=== PATIENT | male | born 1985 | race Caucasian/White ===

== ENCOUNTER 2020-04-23 08:31 | Emergency (ER) | payer OTHER, SELFPAY ==
[2020-04-23 08:51] VITALS: BP 128/90; PULSE 74; RESP 16; TEMP 36.3; O2SAT 100
--- NOTE | 2020-04-23 08:53 | ED.SKABFB ---
HPI - Skin/Abscess/Foreign Bdy General Chief complaint: Extremity Injury, Lower Stated complaint: injury right great toe Time Seen by Provider: 04/23/20 08:53 Source: patient and RN notes reviewed History of Present Illness HPI narrative: Patient is a 35-year-old male that presents the urgent care with complaints of injury to right great toe. Patient states that last night he rolled the trash can over the right great toe and was wondering what to do about the toenail . Patient states that he is cleaned and wrapped it. No other acute complaints. No acute distress noted. Patient read the plan of care. Related Data Home Medications Medication Instructions Recorded Confirmed zonisamide 50 mg PO DAILY 04/23/20 04/23/20 Allergies Allergy/AdvReac Type Severity Reaction Status Date / Time No Known Allergies Allergy Verified 04/23/20 08:58 Review of Systems Review of Systems: Narrative: CONSTITUTIONAL: Denies fever, chills, or sweats. EYES: Denies visual changes, redness, or discharge. ENT: Denies rhinorrhea, congestion, sore throat, or otalgia. CARDIOVASCULAR: Denies chest pain, palpitations, or edema. RESPIRATORY: Denies cough or dyspnea. GASTROINTESTINAL: Denies abdominal pain, nausea, vomiting, or diarrhea. GENITOURINARY: Denies dysuria or hematuria. SKIN: Reports of abrasion and right great toe nail injury MUSCULOSKELETAL: Reports of injury to right great toe NEUROLOGIC: Denies headache, numbness, or weakness. All other systems reviewed are negative, except as documented in HPI. PMFSH Comments At the time of my signature, I reviewed and agree with the nursing past medical, surgical, social, and family history. There is no relevant family history pertinent to the patient complaint. Exam Narrative: Exam Narrative: GENERAL: This is a well-nourished, well-developed patient, in no apparent distress. HEAD: normocephalic, atraumatic. EYES: PERRL. Sclera clear/white. Vision is grossly intact. EARS: External ears normal NOSE: External nose normal with no obvious nasal discharge, nares without redness, no rhinorrhea. THROAT: Mucous membranes moist NECK: Neck supple, non-tender without lymphadenopathy, masses or thyromegaly. SKIN: Flap abrasion noted to the medial aspect of the right great toe with affected intact right great toenail. Warm, intact with no suspicious lesions or rash, good texture and turgor. NEURO: awake, alert, and oriented to person, place and time. There were no obvious focal neurologic abnormalities. EXTREMITIES: No obvious edema, ecchymosis, erythema, deformity to right great toe. Capillary refill less than 2 seconds to right lower extremity with positive strong right pedal pulse. Course Vital Signs Vital signs: Vital Signs Temperature 97.4 F L 04/23/20 08:51 Pulse Rate 74 04/23/20 08:51 Respiratory Rate 16 04/23/20 08:51 Blood Pressure 128/90 04/23/20 08:51 Pulse Oximetry 100 04/23/20 08:51 Temperature 97.4 F L 04/23/20 08:51 Pulse Rate 74 04/23/20 08:51 Respiratory Rate 16 04/23/20 08:51 Blood Pressure 128/90 04/23/20 08:51 Pulse Oximetry 100 04/23/20 08:51 Reviewed MDM - Skin/Abscess/Foreign Bdy MDM Narrative Medical decision making narrative: Advised the patient to keep the toe very clean, soaking it in plain Dial soap and water at least twice a day or as needed. Wear dressing over the toe if wearing a shoe as necessary. Use prescription cream to the abrasions twice a day as directed. If you develop any redness, swelling, increased pain or streaking of redness up the toes/foot?start oral antibiotics as directed. Otherwise oral antibiotics may not be necessary. Make sure if you do take them, eat and drink with the medication. The toenail will likely eventually fall off, however do not attempt to remove it on your own. Follow-up with podiatry within 1 week. Follow-up with your PCP within 2 to 5 days or for worsening symptoms or failure to improve. Differenti
== END 2020-04-23 09:28 | disposition home or self-care (01) ==
PROVIDERS: Emergency Provider Nurse Practitioner Family
DX: S90.411A Abrasion, right great toe, initial encounter (principal); W22.8XXA Striking against or struck by other objects, initial encounter
CPT/HCPCS: 99213; G0463

== ENCOUNTER 2022-09-02 14:23 | Emergency (ER) | payer OTHER, SELFPAY ==
[2022-09-02 14:34] VITALS: BP 154/92; PULSE 119; RESP 16; TEMP 36.7; O2SAT 100
--- NOTE | 2022-09-02 15:29 | ED.URI ---
HPI - URI/Sore Throat General Chief Complaint: Upper Respiratory Infection Stated Complaint: Covid Positive Time Seen by Provider: 09/02/22 15:15 Source: patient, RN notes reviewed and old records reviewed Mode of arrival: ambulatory Limitations: no limitations History of Present Illness HPI Narrative: 37-year-old male who presents to [facility] care with complaints of testing positive on home COVID test but work would not take home test must be verified. Patient reports his and kids are all ill also with COVID symptoms. Patient reports that he has had fatigue, nausea and diarrhea since Thursday and he took 2 home tests which were both positive, he has been COVID vaccinated and had Booster. Patient does have history of seizure takes daily medication to control. MD elicited complaint: other (fatigue, nausea and diarrhea) Onset (ago): day(s) (2) Related Data Home Medications Medication Instructions Recorded Confirmed zonisamide 50 mg capsule 50 mg PO DAILY 04/23/20 09/02/22 Allergies Allergy/AdvReac Type Severity Reaction Status Date / Time No Known Allergies Allergy Verified 09/02/22 15:08 Review of Systems Review of Systems: CONSTITUTIONAL: Reports malaise, no chills, sweats, or fever. EYES: Denies visual changes, redness, or discharge. ENT: Reports rhinorrhea, congestion, sinus pain, otalgia and sore throat. CARDIOVASCULAR: Denies chest pain, palpitations, or edema. RESPIRATORY: No cough reported? Denies dyspnea. GASTROINTESTINAL: Denies abdominal pain,positive for nausea,no vomiting,positive for diarrhea SKIN: Denies rash or itching. MUSCULOSKELETAL: Reports myalgia and fatigue NEUROLOGIC: Denies headache. All systems reviewed & are unremarkable except as noted in HPI and below PMFSH Past Medical History Medical History (Updated 09/04/22 @ 21:55 by Huyen Torres NP) Epilepsy Surgical History Surgical History (Updated 09/04/22 @ 21:56 by Huyen Torres NP) History of surgery on arm orthopedic surgery right arm Social History Social History (Updated 09/04/22 @ 22:01 by Huyen Torres NP) Tobacco type: e-cigarettes/vaping Alcohol intake: unknown Substance use type: does not use Living arrangements: with family Gender identity (if verbalized by the patient): Male Comments At time of signature, agree with nursing past medical, surgical, social and family history. There is no relevant family history pertinent to the presenting complaint Exam Narrative: GENERAL: Well-appearing, well-nourished, and in no acute distress. HEAD: Normocephalic EYES: PERRLA, conjunctivae clear ENT: Nares clear, turbinates edematous and erythematous, clear discharge. Mucous membranes moist. TM pearly bauman with dull light reflex bilaterally; no tragal tenderness. Oropharynx mild erythematous without lesions. Tonsils not enlarged and without exudate, no drooling, no hoarseness, no trismus, uvula midline. NECK: Supple. No lymphadenopathy CHEST: Clear to auscultation, breath sounds equal. No wheezing, rhonchi, rales, or stridor. No respiratory distress, speaks in full sentences. SAO2 100% on room air HEART: Regular rate and rhythm. No murmur heard. ABDOMINAL: no abdominal pain verbalized, nausea with diarrhea, has had no vomiting, no McBurney point tenderness. SKIN: Warm, dry, no rash vomiting,. NEURO: Alert and oriented x3. PSYCH: Normal mood and affect Course Course Emergency Course: Patient is aware of diagnosis, understands and agrees to treatment plan.? Anticipatory guidance given.? Patient agrees to follow-up as directed and is aware of reasons to seek care at the emergency department. Portions of this record may have been created with voice recognition software Level of Care: Express Care Visit Vital Signs Vital signs: Vital Signs Temperature 36.7 C 09/02/22 14:34 Pulse Rate 119 H 09/02/22 14:34 Respiratory Rate 16 09/02/22 14:34 Blood Pressure 154/92
== END 2022-09-02 15:48 | disposition home or self-care (01) ==
PROVIDERS: Emergency Provider Registered Nurse
DX: U07.1 COVID-19 (principal); G40.909 Epilepsy, unspecified, not intractable, without status epilepticus; F17.290 Nicotine dependence, other tobacco product, uncomplicated
CPT/HCPCS: 87426; 99213; C9803; G0463

== ENCOUNTER 2023-01-21 09:57 | Emergency (ER) | payer OTHER, SELFPAY ==
[2023-01-21 10:07] VITALS: BP 135/80; PULSE 102; RESP 18; TEMP 36.3; O2SAT 100
--- NOTE | 2023-01-21 10:10 | ED.NAVMDI ---
HPI - Nausea/Vomiting/Diarrhea General Chief complaint: Nausea/Vomiting/Diarrhea Stated complaint: Abdominal Pain/Nausea/ Vomiting/Diarrhea Time Seen by Provider: 01/21/23 10:01 Source: patient Mode of arrival: ambulatory Limitations: no limitations History of Present Illness HPI Narrative: Yury is a 37-year-old male patient presenting to the clinic today with complaints of abdominal cramping, nausea, vomiting, and diarrhea since 2:00 a.m. this morning. He reports he has vomited approximately 20 times and had 2 episodes of diarrhea. Has a generalized feeling of cramping and a knot in his stomach. No history of constipation. He denies any fever or chills. He is concerned that he may have COVID as he has had recent exposure to someone with COVID. Also reports that his daughters have both had vomiting and diarrhea over the past few days. He denies a sore throat. Related Data Home Medications Medication Instructions Recorded Confirmed zonisamide 50 mg capsule 50 mg PO DAILY 04/23/20 09/02/22 citalopram 10 mg tablet mg 01/21/23 Allergies Allergy/AdvReac Type Severity Reaction Status Date / Time No Known Allergies Allergy Verified 01/21/23 10:00 Review of Systems Review of Systems: Pertinent positives per HPI. Patient denies any fever, chills, rash, headache, visual changes, dizziness, cough, runny nose, sore throat, shortness of breath, chest pain, palpitations, constipation, or any urinary issues. PMFSH Past Medical History Medical History Epilepsy Surgical History Surgical History History of surgery on arm orthopedic surgery right arm Social History Social History Tobacco type: e-cigarettes/vaping Alcohol intake: unknown Substance use type: does not use Living arrangements: with family Gender identity (if verbalized by the patient): Male Comments At the time of my signature, I reviewed and agree with the nursing past medical, surgical, social, and family history. There is no relevant family history pertinent to the patient complaint. Exam Narrative: General: Well-developed, well nourished, in no apparent distress Head: Normocephalic, atraumatic Eyes: Pupils equally round and reactive to light bilaterally, EOM intact, sclera and conjunctive clear, no discharge, lids normal Ears: TMs intact and clear, ear canals clear, no drainage, grossly hearing normal. Nose: Nares patent, no discharge, no inflammation, no sinus tenderness. Mouth: Oropharynx without lesions or masses, good dentition, MMM. Neck: Supple, trachea midline, no enlargement of anterior or posterior cervical nodes, no thyroid masses or goiter palpable. Cardio: Regular rate and rhythm, s1 and s2 normal, no murmur appreciated. Resp: Clear to auscultation bilaterally anteriorly and posteriorly, no rhonchi, rales, wheezing or rubs Abdomen: Soft, pliable, bowel sounds present in all quadrants, non-tender to palpation, no organomegly, no CVAT tenderness. Course Course Emergency Course: Portions of this record may have been created with voice recognition software. Level of Care: Express Care Visit Vital Signs Vital signs: Vital Signs Temperature 36.3 C L 01/21/23 10:07 Pulse Rate 102 H 01/21/23 10:07 Respiratory Rate 18 01/21/23 10:07 Blood Pressure 135/80 01/21/23 10:07 Pulse Oximetry 100 01/21/23 10:07 Oxygen Delivery Room Air 01/21/23 10:07 Temperature 36.3 C L 01/21/23 10:07 Pulse Rate 102 H 01/21/23 10:07 Respiratory Rate 18 01/21/23 10:07 Blood Pressure 135/80 01/21/23 10:07 Pulse Oximetry 100 01/21/23 10:07 Oxygen Delivery Room Air 01/21/23 10:07 Vital signs reviewed MDM - Nausea/Vomiting/Diarrhea MDM Narrative Medical decision making narrative: At the time of visit patient is resting c
== END 2023-01-21 10:40 | disposition home or self-care (01) ==
PROVIDERS: Emergency Provider Nurse Practitioner Family
DX: K52.9 Noninfective gastroenteritis and colitis, unspecified (principal); F17.290 Nicotine dependence, other tobacco product, uncomplicated; Z20.822 Contact with and (suspected) exposure to COVID-19
CPT/HCPCS: 87426; 87804; 99213; C9803; G0463